=== PATIENT | male | born 1995 | race African-American/Black ===

== ENCOUNTER 2024-06-16 15:34 | Outpatient (CLI) | payer OTHER | END 2024-06-16 15:49 | disposition home or self-care (01) | LOC: RAD 15:34 | PROVIDERS: ATTEND General Practice | DX: R53.81 Other malaise (principal); R05.9 Cough, unspecified; R06.02 Shortness of breath ==

== ENCOUNTER 2024-12-23 19:16 | Emergency (ER) | payer OTHER ==
[~2024-12-23] VITALS: Ht 185.4 cm; Wt 117.9 kg
[2024-12-23] MEDS ORDERED: KETOROLAC TROMETHAMINE 30 MG VIAL ONE (20:57)
[2024-12-23] MEDS ORDERED: KETOROLAC TROMETHAMINE 30 MG VIAL IM STA (20:57)
[2024-12-23 21:19] LABS: BASO % 0.3 % (0.1-1.2); EOS # 0.52 (0.04-0.54); EOS % 4.9 % (0.7-7.0); LYMPH # 2.15 (1.18-3.74); LYMPH % 20.2 % (19.3-53.1); MEAN PLATELET VOLUME 10.60 fl (9.4-12.4); MONO # 0.92 (0.24-0.82); MONO % 8.7 % (4.7-12.5); NEUT # 6.91 (1.56-6.13); NEUT % 65.0 % (34.0-71.1); RED CELL DISTRIBUTION WIDTH 12.0 % (11.6-14.4)
[2024-12-23 21:49] LABS: ALT/SGPT 81.0 U/L (12-78); AST/SGOT 41.0 U/L (15-37); BILIRUBIN TOTAL 0.65 mg/dL (0.3-1.2); BUN CREA RATIO 7.0 (7.0-25.0); CREATININE SERUM 1.02 mg/dL (0.70-1.30); GFR 85.18; GLOBULINA 3.2 G/DL (2.4-3.5); GLUCOSE FASTING 94.0 mg/dL (65-100); OSMOLALITY SERUM 275.0 MOSM/KG (275-295)
== END 2024-12-23 23:39 | disposition home or self-care (01) ==
LOC: ER 19:19
PROVIDERS: General Practice
DX: M94.0 Chondrocostal junction syndrome [Tietze] (principal)